=== PATIENT | female | born 1945 | race Caucasian/White ===

== ENCOUNTER 2019-11-15 17:27 | Observation (INO) | payer OTHER ==
[~2019-11-15] VITALS: Ht 154.9 cm; Wt 52.2 kg
--- NOTE | ~2019-11-15 | EKG ---
[facility] [address] [place] [address] ELECTROCARDIOGRAM REPORT Name: KAL MORRISSEYLY Room #: PRE M.R.#: [id number] Admission: Attend Phys: Discharge: Date of : 47 Report #: [id number] THIS REPORT FOR: cc: Rita Salinas MD ~ THIS REPORT FOR: //name// [facility] ED Test Date: 2019-11-15 Test Time: 19:24:33 Pat Name: CIARA MORRISSEY Department: Room: Gender: F Guest Relations Coordinator: [place] : 1945 Requested By: Bret Ignacio Order Number: [id number] MD: Measurements Intervals [place] Rate: 81 P: 64 [place]: 153 QRS: -15 QRSD: 93 T: 38 QT: 362 QTc: 421 Interpretive Statements Sinus rhythm Left atrial enlargement Borderline left axis deviation No previous ECG available for comparison [email or web address] By: 23 23 Rita Salinas MD /EPI
[2019-11-15 17:28] VITALS: BP 186/96
[2019-11-15 19:44] LABS: ABSOLUTE NEUTROPHILS 5.1 thou/uL (1.4-8.2); BASOPHILS 0.8 % (0.0-2.0); EOSINOPHILS 0.4 % (0.0-3.0); HEMATOCRIT 38.3 % (37.0-47.0); HEMOGLOBIN 12.7 gm/dL (12.0-15.0); LYMPHOCYTES 6.4 % (24.0-44.0); MCH 31.3 pg (26.0-34.0); MCHC 33.3 g/dL (28.0-37.0); MONOCYTES 5.8 % (1.0-8.0); PLATELET COUNT 145 thou/uL (150-400); POLYS 86.6 % (36.0-66.0); RBC 4.07 mil/uL (4.20-5.00); RDW 13.9 % (10.5-14.5); WBC 5.9 thou/uL (4.0-11.0)
[2019-11-15 19:52] LABS: ANION GAP 7 mmol/L (7-16); BUN 22 mg/dL (7-18); CALCIUM 9.3 mg/dL (8.5-10.1); CHLORIDE 105 mmol/L (98-107); CO2 30 mmol/L (21-32); CREATININE 0.9 mg/dL (0.6-1.0); GLUCOSE 101 mg/dL (74-106); POTASSIUM 4.3 mmol/L (3.5-5.1); SODIUM 142 mmol/L (136-145)
[2019-11-15 20:00] LABS: LIPASE 179 U/L (73-393); TROPONIN-I <0.06 ng/mL (<0.06)
[2019-11-16] VITALS (12 sets, daily range): BP systolic 108–167; BP diastolic 55–86
--- NOTE | 2019-11-16 00:44 | NUR ---
HAND OFF TOOL SENT TO ICU
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
--- NOTE | 2019-11-16 09:30 | NUR ---
chart review, pt up in recliner chair. legal blind. no co of pain. a & o x 3, able to make her needs know. she reported " well my mom is next door, we live in house alone. son deepak drives us if need to go some where. 7 step in from garage and 5 more steps to bedroom. independent. own medication, walker. been to [facility] in past for rehab and [facility] in past but don't remember who it was with. plan on going home"/lyubov. will cont following as needed for dc needs.
[2019-11-16] MEDS ORDERED: TYLENOL325 MG PO (13:07)
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
== END 2019-11-16 16:21 | disposition home or self-care (01) ==
LOC: ER 17:27 → ICU 22:36 → EROBS 22:36 → ICU 22:36 → EROBS 11-16 01:04 → ICU 11-16 02:22
PROVIDERS: Emergency Medicine; ADMIT Hospitalist
DX: S32.019A Unspecified fracture of first lumbar vertebra, initial encounter for closed fracture (principal); S22.49XA Multiple fractures of ribs, unspecified side, initial encounter for closed fracture; S32.039A Unspecified fracture of third lumbar vertebra, initial encounter for closed fracture; S32.049A Unspecified fracture of fourth lumbar vertebra, initial encounter for closed fracture; V89.2XXA Person injured in unspecified motor-vehicle accident, traffic, initial encounter; Y93.89 Activity, other specified; Y92.89 Other specified places as the place of occurrence of the external cause; Y99.8 Other external cause status; E78.5 Hyperlipidemia, unspecified